=== PATIENT | male | born 1940 | race Caucasian/White ===

== ENCOUNTER 2020-02-29 06:02 | Outpatient (RCR) | payer MEDICARE ==
[~2020-02-29] VITALS: Ht 177.8 cm; Wt 121.3 kg
[2020-02-29 09:02] VITALS: BP 134/72
[2020-02-29 09:37] LABS: BASOPHILS % (AUTO) 0 % (0-10); EOSINOPHILS # (AUTO) 0.2 10^3/uL (0.0-0.3); EOSINOPHILS % (AUTO) 3 % (0-10); HEMATOCRIT 43 % (40-54); HEMOGLOBIN 14.4 G/DL (13.3-17.7); LYMPHOCYTES # (AUTO) 2.4 X 10^3 (1.0-4.0); LYMPHOCYTES % (AUTO) 38 % (12-44); MEAN CORPUSCULAR HEMOGLOBIN 32 PG (25-34); MEAN CORPUSCULAR HGB CONC 33 G/DL (32-36); MEAN CORPUSCULAR VOLUME 97 FL (80-99); MEAN PLATELET VOLUME 10.7 FL (7.4-10.4); MONOCYTES # (AUTO) 0.5 X 10^3 (0.0-1.0); MONOCYTES % (AUTO) 8 % (0-12); NEUTROPHILS # (AUTO) 3.3 X 10^3 (1.8-7.8); NEUTROPHILS % (AUTO) 51 % (42-75); PLATELET COUNT 137 10^3/uL (130-400); RED CELL DISTRIBUTION WIDTH 13.1 % (10.0-14.5); WHITE BLOOD COUNT 6.4 10^3/uL (4.3-11.0)
[2020-02-29 09:52] LABS: BUN/CREATININE RATIO 16; CALCIUM 9.7 MG/DL (8.5-10.1); CARBON DIOXIDE 27 MMOL/L (21-32); CHLORIDE 102 MMOL/L (98-107); CREATININE SERUM 0.81 MG/DL (0.60-1.30); GFR ESTIMATED > 60; GLUCOSE 174 MG/DL (70-105); POTASSIUM 3.9 MMOL/L (3.6-5.0); SODIUM 139 MMOL/L (135-145)
--- NOTE | 2020-02-29 10:17 | Diagnostic Imaging Report ---
PATIENT HISTORY: preop. TECHNIQUE: Two views of the chest. COMPARISON: None FINDINGS: The lung volumes are normal. No focal consolidation is seen. There do appear to be small calcified granulomas in the left lung. Punctate hyperdensities overlying the left upper lobe are seen. No large pleural effusion or pneumothorax is seen. The cardiomediastinal silhouette is normal in size and contour. No acute osseous abnormality is seen. IMPRESSION: 1. No acute pulmonary abnormality seen. 2. Punctate hyperdensities projecting over the left upper lobe. This may be due to artifact, foreign bodies, or be external to the patient. Dictated by: Dictated on workstation # [id number]
[2020-02-29] MEDS ORDERED: FURO20TA4 PO (13:36)
[2020-02-29] MEDS ORDERED: TRZ50T PO (13:36)
[2020-02-29] MEDS ORDERED: ASPI-586 PO (13:36)
[2020-02-29] MEDS ORDERED: ROSU20TA32 PO (13:36)
[2020-02-29] MEDS ORDERED: GLIP10TA13 PO (13:36)
[2020-02-29] MEDS ORDERED: METF-397 PO (13:36)
[2020-02-29] MEDS ORDERED: FINA5TAB6 PO (13:36)
[2020-02-29] MEDS ORDERED: ALLO300T2 PO (13:36)
[2020-02-29] MEDS ORDERED: LOSA25TA41 PO (13:36)
[2020-02-29] MEDS ORDERED: DOXA2TAB2 PO (13:36)
== END 2020-02-29 13:42 | disposition home or self-care (01) ==
LOC: PREOP 06:02 → EDSTATUS 09:00 → PREOP 13:42
PROVIDERS: ATTEND Otolaryngology Otolaryngology/Facial Plastic Surgery
DX: Z01.811 Encounter for preprocedural respiratory examination (principal); Z01.810 Encounter for preprocedural cardiovascular examination; Z01.812 Encounter for preprocedural laboratory examination; Z11.2 Encounter for screening for other bacterial diseases; R09.81 Nasal congestion; J34.3 Hypertrophy of nasal turbinates
CPT/HCPCS: 36415; 71046; 80048; 85025; 87081; 93005

== ENCOUNTER 2020-03-09 08:05 | Day surgery (SDC) | payer MEDICARE ==
[2020-03-09] VITALS (10 sets, daily range): BP systolic 117–147; BP diastolic 68–98
[~2020-03-09] VITALS: Ht 177.8 cm; Wt 121.3 kg
[~2020-03-09 08:05] MED LIST: ALLO300T2 PO; ASPI-586 PO; DOXA2TAB2 PO; FINA5TAB6 PO; FURO20TA4 PO; GLIP10TA13 PO; LOSA25TA41 PO; METF-397 PO; ROSU20TA32 PO; TRZ50T PO
--- OUTSIDE RECORDS SUMMARY | 2020-03-09 08:15 | XMS REPORT | Continuity of Care Document ---
Demographics x Preferred Language Unknown Marital Status Unknown Tenriism Affiliation Unknown Race Unknown Ethnic Group Unknown Author Organization Unknown Address Unknown Phone Unavailable Allergies Active Description Code Type Severity Reaction Onset Reported/Identified Relationship to Patient Clinical Status Yes Penicillins [id number] Drug Aller gy Unknown unknown childho 02/29/2020 Yes tetanus and diphtheria toxoids [id number] Drug Allergy Unknown unknown childho 02/29/2020 Medications There is no data. Problems Date Dx Coded Attending Type Code Diagnosis Diagnosed By 10/01/1341 HODAN JEAN MD, Ot J34 .3 HYPERTROPHY OF NASAL TURBINATES 10/01/1341 HODAN JEAN MD Ot R09.81 NASAL CONGESTION 10/01/1341 HODAN JEAN MD Ot Z01.810 ENCOUNTER FOR PREPROCEDURAL CARDIOVASCUL 10/01/1341 HODAN JEAN MD Ot Z01.811 ENCOUNTER FOR PREPROCEDURAL RESPIRATORY 10/01/1341 HODAN JEAN MD Ot Z01.812 ENCOUNTER FOR PREPROCEDURAL LABORATORY E 10/01/1341 HODAN JEAN MD Ot Z11 .2 ENCOUNTER FOR SCREENING FOR OTHER BACTER 10/01/1610 HODAN JEAN MD Ot J34 .3 HYPERTROPHY OF NASAL TURBINATES 10/01/1610 HODAN JEAN MD Ot R09.81 NASAL CONGESTION 10/01/1610 HODAN JEAN MD Ot Z01.810 ENCOUNTER FOR PREPROCEDURAL CARDIOVASCUL 10/01/1610 HODAN JEAN MD Ot Z01.811 ENCOUNTER FOR PREPROCEDURAL RESPIRATORY 10/01/1610 HODAN JEAN MD Ot Z01.812 ENCOUNTER FOR PREPROCEDURAL LABORATORY E 10/01/1610 HODAN JEAN MD Ot Z11 .2 ENCOUNTER FOR SCREENING FOR OTHER BACTER 10/01/1610 HODAN JEAN MD Ot Z11.59 ENCOUNTER FOR SCREENING FOR OTHER VIRAL Procedures There is no data. Results Test Result Range Whole blood basic metabolic panel - 02/01 07/22 09:30 Serum or plasma sodium measurement (moles/volume) 139 mmol/L 135-145 Serum or plasma potassium measurement (moles/volume) 3.9 mmol/L 3.6-5.0 Serum or plasma chloride measurement (moles/volume) 102 mmol/L 98-107 Carbon dioxide 27 mmol/L 21-32 Serum or plasma anion gap determination (moles/volume) 10 mmol/L 5-14 Serum or plasma urea nitrogen measurement (mass/volume ) 13 mg/dL 7-18 Serum or plasma creatinine measurement (mass/volume) 0.81 mg/dL 0.60-1.30 Serum or plasma urea nitrogen/creatinine mass ratio 16 NRG Serum or plasma creatinine measurement w ith calculation of estimated glomerular filtration rate > NRG Serum or plasma glucose measurement (mass/volume) 174 mg/dL 70-105 Serum or plasma calcium measurement (mass/volume) 9.7 mg/dL 8.5-10.1 Methicillin resistant Staphylococcus aur eus (MRSA) screening culture - 02/29/20 09:30 Methicillin resistant Staphylococcus aureus (MRSA) scr eening culture NEG NRG Coronavirus SARS-CoV-2 SO 2018 - 0 13:30 Coronavirus Ab [Units/volume] in Serum Negative Negative Encounters ACCT No. Visit Date/Time Discharge Status Pt. Type Provider Facility Loc./Unit Complaint [id number] 02/28/2020 11:20:00 02/28/2020 23:59: 59 CLS Outpatient [facility] [address] [place] [id number] 03/05/2020 07:14:00 020 16:11:00 DIS Outpatient HODAN JEAN MD [facility] PREOP DEVIATED SEPTUM,TURBINA TE HYPERTROPHY [id number] 03/09/2020 10:00:00 P EN Preadmit HODAN JEAN MD [facility] SDC DEVIATED SEPTUM, TURBINATE H YPERTROPHY
[2020-03-09] MEDS ORDERED: LACTATED RINGERS 1,000 ML IV PRN (08:18)
--- NOTE | 2020-03-09 08:53 | Progress Note-Pre Operative ---
Pre-Operative Progress Note H&P Reviewed The H&P was reviewed, patient examined and no changes noted. Date Seen by Provider: March 09, 2020 Time Seen by Provider: 08:45 Date H&P Reviewed: March 09, 2020 Time H&P Reviewed: 08:45 Pre-Operative Diagnosis: Deviated Nasal Septum, Bilat Hypr of Inf Turbs HODAN JEAN MD March 09, 2020 08:53
[2020-03-09] MEDS ORDERED: fentaNYL INJECTION 100 MCG/2 ML AMP ONE (09:02)
[2020-03-09] MEDS ORDERED: PHENYLEPHRINE 0.5% NASAL SPR (NEO-SYNEPHRINE) REG ONE (09:17)
[2020-03-09] MEDS ORDERED: COCAINE HCL 4% 2 ML SYR ONE (09:17)
[2020-03-09] MEDS ORDERED: LIDOCAINE/EPI 1%-1:100,000 (XYLOCAINE) 20ML ONE (09:18)
[2020-03-09] MEDS ORDERED: ONDANSETRON 4 MG/2 ML (SDV) Z0FRAN ONE (10:40)
[2020-03-09] MEDS ORDERED: ROCURONIUM 10 MG/ML 5 ML SYRINGE IV ONE (10:40)
[2020-03-09] MEDS ORDERED: PHENYLEPHRINE 100 MCG/ML 10 ML (ANESTHESIA) SYR ONE (10:40)
[2020-03-09] MEDS ORDERED: SUCCINYLCHOLINE INJ 100 MG/5 ML SYR ONE (10:40)
[2020-03-09] MEDS ORDERED: proPOfol 200 MG/20 ML (DIPRIVAN) VIAL IV ONE (10:40)
[2020-03-09] MEDS ORDERED: D5 1/2 NS W/KCL 20 MEQ/L 1,000 ML IV SCH (10:49)
--- NOTE | 2020-03-09 10:49 | Progress Note-Post Operative ---
Post-Operative Progess Note Surgeon (s)/Services Host (s) Surgeon HODAN JEAN MD Services Host n/a Pre-Operative Diagnosis Deviated Nasal Septum, Bilat Hypr of Inf Turbs Post-Operative Diagnosis same Post-Op Procedure Note Date of Procedure: March 09, 2020 Name of Procedure Performed: Nasal Septoplasty, Bilat Red of Inf Turbs Description & Findings Description and Findings: n/a Anesthesia Type get Estimated Blood Loss minimal Packing none. Specimen(s) collected/removed nasal septum HODAN JEAN MD March 09, 2020 10:48
[2020-03-09] MEDS ORDERED: SEVOFLURANE (ULTANE) 15 ML INHAL SOLN ONE (10:56)
[2020-03-09] MEDS ORDERED: HYDROmorphone 2 MG/ML VIAL (DILAUDID) IV ONE (11:00)
[2020-03-09] MEDS ORDERED: PROMETHAZINE INJ 25 MG/ML (PHENERGAN) AMP IVP PRN (11:00)
[2020-03-09] MEDS ORDERED: HYDROcodone/APAP 5 MG/325 MG (LORTAB) TAB PO PRN (11:00)
[2020-03-09] MEDS ORDERED: ONDANSETRON 4 MG/2 ML (SDV) Z0FRAN IVP PRN (11:00)
[2020-03-09] MEDS ORDERED: morphine INJ 10 MG/ML 1ML (SYR OR VIAL) IVP ONE (11:00)
[2020-03-09] MEDS ORDERED: ACETAMINOPHEN 325 MG TABLET PO PRN (11:00)
[2020-03-09] MEDS ORDERED: HYDR-83 PO (12:10)
[2020-03-09] MEDS ORDERED: CIPR-225 PO (12:10)
--- NOTE | 2020-03-09 14:56 | Anesthesia-General Post-Op ---
General Patient Condition Mental Status/LOC: Same as Preop Cardiovascular: Satisfactory Nausea/Vomiting: Absent Respiratory: Satisfactory Pain: Controlled Complications: Absent Post Op Complications Complications None Follow Up Care/Instructions Patient Instructions None needed. Anesthesia/Patient Condition Patient Condition Patient is doing well, no complaints, stable vital signs, no apparent adverse anesthesia problems. No complications reported per nursing. SHAYAN ALFARO CRNA March 09, 2020 14:56
== END 2020-03-09 13:15 | disposition home or self-care (01) ==
LOC: SDC 08:05
PROVIDERS: ATTEND Otolaryngology Otolaryngology/Facial Plastic Surgery
DX: J34.2 Deviated nasal septum (principal); J34.89 Other specified disorders of nose and nasal sinuses; J34.3 Hypertrophy of nasal turbinates; R09.81 Nasal congestion; I10 Essential (primary) hypertension; E11.9 Type 2 diabetes mellitus without complications; E66.9 Obesity, unspecified; E78.5 Hyperlipidemia, unspecified; M10.9 Gout, unspecified; Z88.0 Allergy status to penicillin; Z88.7 Allergy status to serum and vaccine; Z68.38 Body mass index [BMI] 38.0-38.9, adult; Z79.84 Long term (current) use of oral hypoglycemic drugs; Z79.899 Other long term (current) drug therapy; Z79.82 Long term (current) use of aspirin
CPT/HCPCS: 82962